=== PATIENT | male | born 2000 | race Caucasian/White ===

== ENCOUNTER → 2023-03-18 | Emergency (ER) | payer OTHER ==
[~2023-03-18] VITALS: Ht 167.6 cm; Wt 68.9 kg
[~2023-03-18] MED LIST: CEFTRIAXONE 500 MG VIAL IM ONE; CEFTRIAXONE 500 MG VIAL ONE; DOXY100C2 PO; DOXYCYCLINE HYCLATE (100 MG) 100 MG TABLET ONE; DOXYCYCLINE HYCLATE (100 MG) 100 MG TABLET PO ONE
[2023-03-18 15:35] VITALS: BP 122/74; TEMP 98.4; O2SAT 100
[2023-03-21 05:09] LABS: CHLAMYDIA TRACHOMATIS NAA Negative (Negative); NEISSERIA GONORRHOEAE NAA Negative (Negative)
== END | disposition home or self-care (01) ==
LOC: ER 14:09
DX: A64 Unspecified sexually transmitted disease (principal); N34.2 Other urethritis; R30.0 Dysuria; Z79.899 Other long term (current) drug therapy; Z60.2 Problems related to living alone
CPT/HCPCS: 99283; 96372; 87491; 87591; J0696

== ENCOUNTER → 2023-07-11 | Emergency (ER) | payer OTHER ==
[~2023-07-11] VITALS: Ht 167.6 cm; Wt 52.2 kg
[~2023-07-11] MED LIST changes: +ACET325C7 PO; -CEFTRIAXONE 500 MG VIAL IM ONE; -CEFTRIAXONE 500 MG VIAL ONE; -DOXYCYCLINE HYCLATE (100 MG) 100 MG TABLET ONE; -DOXYCYCLINE HYCLATE (100 MG) 100 MG TABLET PO ONE; +IOHEXOL-300 100 ML VIAL IV ONE; +IV NS 0.9% 1,000 ML BAG IV ONE; +IV NS 0.9% 250 ML IV ONE; +METH4TAB17 PO; +MORPHINE SULFATE 8 MG/ML VIAL IV ONE; +MORPHINE SULFATE INJ 4 MG/ML DISP.SYRIN ONE; +ONDANSETRON HCL/PF 4 MG/2 ML VIAL IV ONE; +ONDANSETRON HCL/PF 4 MG/2 ML VIAL ONE; +TDAP [DIPH/PERTUSSIS/TET] 0.5 ML VIAL IM ONE
[2023-07-11 17:29] VITALS: BP 127/86; TEMP 98.4; O2SAT 97
[2023-07-11 18:16] LABS: BASOPHILS # (AUTO) 0.1 K/uL (0.0-0.2); BASOPHILS % (AUTO) 1.2 % (0.0-2.0); EOSINOPHILS # (AUTO) 0.2 K/uL (0.0-0.7); EOSINOPHILS % (AUTO) 1.9 % (0.0-6.0); HEMATOCRIT 40 % (39-51); HEMOGLOBIN 13.2 g/dL (13.5-17.5); LYMPHOCYTES # (AUTO) 2.4 K/uL (0.8-4.8); LYMPHOCYTES % (AUTO) 23.2 % (20.0-44.0); MEAN CORPUSCULAR HEMOGLOBIN 27 PG (26.0-33.0); MEAN CORPUSCULAR HGB CONC 33 g/dl (31.0-36.0); MEAN CORPUSCULAR VOLUME 80 fL (80-96); MONOCYTES # (AUTO) 0.4 K/uL (0.1-1.30); MONOCYTES % (AUTO) 4.2 % (2.0-12.0); NEUTROPHILS # (AUTO) 7.1 K/uL (1.8-8.9); NEUTROPHILS % (AUTO) 69.5 % (43.0-81.0); PLATELET COUNT (AUTO) 262 K/uL (150-450); RED BLOOD CELL COUNT(AUTO) 4.93 MIL/uL (4.5-6.0); RED CELL DISTRIBUTION WIDTH 12.8 % (11.5-15.0); WHITE BLOOD COUNT (AUTO) 10.3 K/uL (4.3-11.0)
[2023-07-11 18:25] LABS: CALCIUM, SERUM 9.8 mg/dL (8.5-10.1)
[2023-07-11 18:31] LABS: ALBUMIN 4.7 g/dL (3.4-5.0); BILIRUBIN,TOTAL 0.4 mg/dL (0.2-1.0); TOTAL PROTEIN, SERUM 7.8 g/dL (6.4-8.2)
== END | disposition home or self-care (01) ==
LOC: ER 17:04
DX: S83.8X1A Sprain of other specified parts of right knee, initial encounter (principal); M79.632 Pain in left forearm; M54.50 Low back pain, unspecified; R51.9 Headache, unspecified; Z79.899 Other long term (current) drug therapy; Z60.2 Problems related to living alone; Z88.1 Allergy status to other antibiotic agents; Z88.5 Allergy status to narcotic agent; V09.9XXA Pedestrian injured in unspecified transport accident, initial encounter; Y93.51 Activity, roller skating (inline) and skateboarding; Y92.89 Other specified places as the place of occurrence of the external cause; Y99.8 Other external cause status
CPT/HCPCS: 99285; 72125; 96374; 96361; 90471; 90715; 73090; 73564; 73590; 71260; 70450; 74177; 85025; 36415; 80053; J2270 ×2; J2405; J7030; J7050; Q9967